=== PATIENT | female | born 1965 | race Caucasian/White ===

== ENCOUNTER 2023-10-23 07:30 | Emergency (ER) | payer BC, OTHER ==
[~2023-10-23] VITALS: Ht 152.4 cm; Wt 53.2 kg
[~2023-10-23 07:30] MED LIST: ASPI-556 PO; ATOR20TA PO; GABA-1181 PO; INSLAN SQ; LISI-893 PO; METF-1211 PO; MONT-35 PO; SITA50 PO
[2023-10-23 07:33] VITALS: TEMP 97.7
[2023-10-23] MEDS: KETOROLAC TROMETHAMINE 30 MG/ML VIAL IVP ONE (08:08)
[2023-10-23] MEDS: ONDANSETRON HCL 4 MG/2 ML VIAL IVP ONE (08:08)
[2023-10-23] MEDS: SODIUM CHLORIDE 0.9% 2,000 ML IV ONE (08:08)
[2023-10-23] MEDS: INSULIN REGULAR, HUMAN 100 UNITS/ML IVP ONE ×2 (08:11→11:48)
[2023-10-23 08:21] LABS: BASOPHILS % (AUTO) 1.4 % (0.0-2.0); EOSINOPHILS % (AUTO) 0.8 % (1.0-6.0); HEMOGLOBIN 13.3 g/dL (12.0-16.0); LYMPHOCYTES # (AUTO) 2.1 K/uL (1.0-4.8); LYMPHOCYTES % (AUTO) 26.5 % (22.0-44.0); MEAN CORPUSCULAR HEMOGLOBIN 31.9 pg (26.0-34.0); MEAN CORPUSCULAR HGB CONC 34.2 G/dL (31.0-37.0); MEAN CORPUSCULAR VOLUME 93 fL (80-100); MONOCYTES # (AUTO) 0.6 K/uL (0.1-1.0); MONOCYTES % (AUTO) 7.7 % (2.0-9.0); NEUTROPHILS % (AUTO) 63.6 % (40.0-70.0); PLATELET COUNT (AUTO) 263 K/uL (150-450); RED BLOOD CELL COUNT(AUTO) 4.18 MIL/uL (4.00-5.20); RED CELL DISTRIBUTION WIDTH 12.2 % (11.5-14.5); WHITE BLOOD COUNT (AUTO) 7.8 K/uL (4.5-11.0)
[2023-10-23 08:37] LABS: ANION GAP 14 mmol/L (8-16); CALCIUM, TOTAL 10.4 mg/dL (8.8-10.5); CARBON DIOXIDE 30 mmol/L (22-29); CHLORIDE 93 mmol/L (98-107); CREATININE 2.15 mg/dL (0.60-1.30); GLOMERULAR FILTR. RATE CALC 24 mL/min (>60); GLUCOSE,RANDOM 363 mg/dL (70-110); POTASSIUM 3.5 mmol/L (3.5-5.1); SODIUM SERUM 137 mmol/L (136-145); UREA NITROGEN, BLOOD 32 mg/dL (7-18)
[2023-10-23 08:41] LABS: ALANINE AMINOTRANSFERASE 23 U/L (12-78); ALBUMIN 4.5 g/dL (3.4-5.0); ALKALINE PHOSPHATASE 121 U/L (46-116); ASPARTATE AMINOTRANSFERASE 13 U/L (15-37); BILIRUBIN,TOTAL 0.7 mg/dL (0.1-1.0); LIPASE 76 U/L (16-77); TOTAL PROTEIN, SERUM 8.8 g/dL (6.4-8.2)
[2023-10-23 08:42] LABS: TROPONIN I-HIGH SENSITIVITY 5 ng/L (<51)
[2023-10-23 08:46] LABS: LACTIC ACID 1.4 mmol/L (0.4-2.0)
[2023-10-23 08:53] LABS: ACETONE,BLOOD TRACE (NEGATIVE)
[2023-10-23] MEDS ORDERED: PARO-37 PO (11:38)
[2023-10-23] MEDS: LORazepam 2 MG/ML VIAL IVP ONE (11:46)
[2023-10-23 11:52] VITALS: BP 135/75; PULSE 87; RESP 21
[2023-10-23 13:05] LABS: GLUCOMETER DEV NAME(LOC) ERT.5; GLUCOSE,POINT OF CARE 255 MG/DL (70-110)
== END 2023-10-23 13:13 | disposition short-term general hospital (02) ==
LOC: EMS 07:30
DX: N17.9 Acute kidney failure, unspecified (principal); E86.0 Dehydration; R79.89 Other specified abnormal findings of blood chemistry; E78.00 Pure hypercholesterolemia, unspecified; Z98.890 Other specified postprocedural states
CPT/HCPCS: 99285; 96374; 96375; 96361; 80048; 80076; 82009; 82962; 83605; 83690; 84484; 85025; 36415; 96376; J1815; J1885; J2060; J2405; J7030